=== PATIENT | female | born 1995 | race Caucasian/White ===

== ENCOUNTER 2018-06-26 10:35 | Day surgery (SDC) | payer OTHER ==
[~2018-06-26 10:35] MED LIST: LIDOCAINE 2% (SDV) 5 ML INJ
[2018-06-26] MEDS ORDERED: FENTAnyl 50 MCG/ML VIAL ×2 (12:13→12:59)
[2018-06-26] MEDS ORDERED: MIDAZOLAM 1 MG/ML 2 ML INJ (12:13)
[2018-06-26] MEDS ORDERED: ROCURONIUM 50 MG INJ (12:14)
[2018-06-26] MEDS ORDERED: PROPOFOL 20 ML (12:14)
[2018-06-26] MEDS ORDERED: CEFAZOLIN 1 GM INJ (12:52)
[2018-06-26] MEDS ORDERED: METOPROLOL 5 MG INJ (13:05)
[2018-06-26] MEDS: IOHEXOL 300MG/ML 30 ML BTL (13:10)
[2018-06-26] MEDS ORDERED: GLYCOPYRROLATE 0.4 MG INJ (14:03)
[2018-06-26] MEDS ORDERED: NEOSTIGMINE 3 MG/3 ML SYRINGE (14:03)
[2018-06-26] MEDS ORDERED: DEXAMETHASONE 4 MG/ML 1 ML INJ (14:15)
[2018-06-26] MEDS ORDERED: ONDANSETRON 4 MG INJ (14:15)
[2018-06-26] MEDS ORDERED: ALBUTEROL 0.083% (NEB) 2.5 MG/3 ML AMP (14:17)
[2018-06-26] MEDS ORDERED: RACEPINEPHRINE 2.25%(NEB) 0.5 ML AMP (14:18)
[2018-06-26] MEDS ORDERED: HYDROCODONE/APAP (5/325) TAB PO (14:30)
[2018-06-26] MEDS: HYDROmorphONE 1 MG/5 ML IV SYRINGE IV (14:49)
== END 2018-06-26 16:13 | disposition home or self-care (01) ==
LOC: SDS 10:35
DX: N20.1 Calculus of ureter (principal)
CPT/HCPCS: 52356; 74430; 84703; 87086; 88300